=== PATIENT | female | born 1985 | race Hispanic/Latino ===

== ENCOUNTER 2021-07-21 20:47 | Emergency (ER) | payer SELFPAY | END 2021-07-21 22:50 | disposition left against medical advice (07) | LOC: CSHERS 20:47 | DX: Z53.21 Procedure and treatment not carried out due to patient leaving prior to being seen by health care provider (principal) ==

== ENCOUNTER 2021-09-21 08:42 | Emergency (ER) | payer SELFPAY | END 2021-09-21 21:26 | disposition home or self-care (01) | LOC: CSHERS 20:42 | DX: J02.9 Acute pharyngitis, unspecified (principal); R51.9 Headache, unspecified; R50.9 Fever, unspecified | CPT/HCPCS: 99283 ==

== ENCOUNTER 2022-03-18 16:55 | Emergency (ER) | payer SELFPAY ==
[2022-03-18] MEDS ORDERED: Ketorolac Tromethamine 30 MG/ML VIAL ONE ×2 (19:59→20:00)
[2022-03-18] MEDS ORDERED: Diazepam 10 MG/2 ML SYRINGE ONE (20:00)
[2022-03-19] MEDS ORDERED: Apixaban 5 MG TAB ONE (20:39)
[2022-03-19] MEDS ORDERED: Atorvastatin Calcium 10 MG TAB ONE (20:39)
[2022-03-19] MEDS ORDERED: Famotidine 20 MG TAB ONE (20:40)
== END 2022-03-18 21:53 ==
LOC: CSHERS 16:55
DX: M54.50 Low back pain, unspecified (principal)
CPT/HCPCS: 96372; 99283; J1885; J3360

== ENCOUNTER 2024-03-10 17:39 | Emergency (ER) | payer SELFPAY ==
[2024-03-10] MEDS ORDERED: HYDROcodone/Acetaminophen 5/325 mg Tablet ONE (18:20)
== END 2024-03-10 18:36 | disposition home or self-care (01) ==
LOC: CSHERS 17:39
DX: S90.121A Contusion of right lesser toe(s) without damage to nail, initial encounter (principal); W22.8XXA Striking against or struck by other objects, initial encounter; Y93.01 Activity, walking, marching and hiking
CPT/HCPCS: 99283